=== PATIENT | female | born 1985 | race Caucasian/White ===

== ENCOUNTER 2017-01-25 14:42 | Emergency (ER) | payer OTHER ==
[2017-01-25 16:06] VITALS: BP 112/60
--- NOTE | 2017-01-25 16:31 | UC ---
FLU HPI - HPI Summary HPI Summary: Sudden onset of fever last night 101.3 with body aches and cough. No shortness of breath or wheezing. Has two sons at home that are positive influenza and are currently being treated with Tamiflu. She is also interested in Tamiflu. - History of Current Complaint Chief Complaint: UCGeneralIllness Stated Complaint: FLU SYMPTOMS Time Seen by Provider: 01/25/17 16:13 Hx Obtained From: Patient Hx Last Menstrual Period: 01/14/17 Onset/Duration: Sudden Onset Severity Currently: Moderate Severity Initially: Mild Associated Signs & Symptoms: Positive: Fever, T Max - 101.3, Myalgia, Cough. Negative: Sore Throat, Nasal Congestion, Headache, Vomiting, Diarrhea Related Hx: Possible Flu/Infectious Exposure - two sons at home have flu - Allergy/Home Medications Allergies/Adverse Reactions: Allergies Allergy/AdvReac Type Severity Reaction Status Date / Time Diphenhydramine Allergy Severe Airway Verified 01/25/17 16:05 [From Benadryl] Obstruction Povidone Iodine Allergy Rash And Verified 01/25/17 16:05 [From Betadine] Itching Salicylic Acid Allergy Hives Verified 01/25/17 16:05 proactive Allergy Hives Uncoded 01/25/17 16:05 PMH/Surg Hx/FS Hx/Imm Hx Previously Healthy: Yes Endocrine History Of: Denies: Diabetes Cardiovascular History Of: Denies: Cardiac Disorders Respiratory History Of: Denies: Asthma - Surgical History Surgical History: Yes Surgery Procedure, Year, and Place: T & A 02/08. NOSE SX; 07/2015 - Social History Occupation: Employed Full-time Lives: With Family Alcohol Use: None Substance Use Type: None Smoking Status (MU): Former Smoker Type: Cigarettes Amount Used/How Often: 1/2 ppd Length of Time of Smoking/Using Tobacco: 14 yrs Have You Smoked in the Last Year: Yes Review of Systems Constitutional: Fever, Fatigue Skin: Negative Eyes: Negative ENT: Negative Respiratory: Cough - non-productive, "tight" Cardiovascular: Negative Gastrointestinal: Negative Genitourinary: Negative Motor: Negative Neurovascular: Negative Musculoskeletal: Myalgia Neurological: Negative Psychological: Negative All Other Systems Reviewed And Are Negative: Yes Physical Exam Triage Information Reviewed: Yes Appearance: Well-Appearing, No Pain Distress, Well-Nourished Vital Signs: Initial Vital Signs Temp 99.9 F 01/25/17 16:00 Pulse 87 01/25/17 16:00 Resp 16 01/25/17 16:00 BP 112/60 01/25/17 16:00 Pulse Ox 98 01/25/17 16:00 Vital Signs Reviewed: Yes Eye Exam: Normal Eyes: Positive: Conjunctiva Clear ENT Exam: Normal ENT: Positive: Normal ENT inspection, Pharynx normal, TMs normal. Negative: Nasal congestion, Nasal drainage, Tonsillar swelling, Tonsillar exudate Neck exam: Normal Neck: Positive: Supple, Nontender, No Lymphadenopathy Respiratory Exam: Normal Respiratory: Positive: Chest non-tender, Lungs clear, Normal breath sounds, No respiratory distress, No accessory muscle use, Other: - no cough on exam. Negative: Crackles, Rhonchi, Stridor Cardiovascular Exam: Normal Cardiovascular: Positive: RRR, No Murmur Musculoskeletal Exam: Normal Neurological Exam: Normal Neurological: Positive: Alert Psychological Exam: Normal Skin Exam: Normal Flu Course/Dx - Differential Dx/Diagnosis Provider Diagnoses: Influenza Discharge - Discharge Plan Condition: Stable Disposition: HOME Prescriptions: Oseltamivir Phosphate [Tamiflu] 75 mg PO BID #10 cap Patient Education Materials: Influenza (ED) Referrals: LYDIA Carreon [Primary Care Provider] - If Needed Additional Instructions: Call or return if you develop increasing fever, shortness of breath, chest pain , bloody sputum, or otherwise worsen. If you have not improved at all after several days, contact your primary care physician or return here.
== END 2017-01-25 16:34 | disposition home or self-care (01) ==
LOC: UCCORT 14:42
DX: J11.1 Influenza due to unidentified influenza virus with other respiratory manifestations (principal); Z88.8 Allergy status to other drugs, medicaments and biological substances; Z87.891 Personal history of nicotine dependence
CPT/HCPCS: 99212; G0463

== ENCOUNTER 2018-08-17 13:32 | Emergency (ER) | payer OTHER ==
[2018-08-17 14:00] VITALS: BP 109/64
--- NOTE | 2018-08-17 14:00 | UC ---
Throat Pain/Nasal Flo HPI - HPI Summary HPI Summary: 32 yo female presents with sinus pain/pressure/congestion and dry cough that started 3 days ago. She has been taking claritin OTC with no relief. Denies fever, chills, SOB - History of Current Complaint Chief Complaint: UCRespiratory Stated Complaint: SINUSES,CHEST CONGESTION Time Seen by Provider: 08/17/18 14:00 Hx Obtained From: Patient Hx Last Menstrual Period: 08/04/18 Pain Intensity: 0 - Allergies/Home Medications Allergies/Adverse Reactions: Allergies Allergy/AdvReac Type Severity Reaction Status Date / Time diphenhydramine Allergy Hives Verified 08/17/18 13:55 [From Benadryl] povidone-iodine Allergy Hives Verified 08/17/18 13:55 [From Betadine] salicylic acid Allergy Hives Verified 08/17/18 13:55 soap [From Betadine] Allergy Hives Verified 08/17/18 13:55 proactive Allergy Hives Uncoded 01/25/17 16:05 Home Medications: Home Medications LoraTADine TAB(NF) [Claritin 10 MG TAB(NF)] 10 mg PO DAILY PRN 08/17/18 [ History Confirmed 08/17/18] PMH/Surg Hx/FS Hx/Imm Hx - Additional Past Medical History Additional PMH: Seasonal allergies - Surgical History Surgical History: Yes Surgery Procedure, Year, and Place: T & A 02/08. NOSE SX; 07/2015 - Family History Known Family History: Positive: None - Social History Occupation: Employed Full-time Lives: With Family Alcohol Use: Rare Substance Use Type: None Smoking Status (MU): Former Smoker Type: Cigarettes Amount Used/How Often: 1/2 ppd Length of Time of Smoking/Using Tobacco: 14 yrs Have You Smoked in the Last Year: Yes When Did the Patient Quit Smoking/Using Tobacco: 4 years ago Review of Systems Constitutional: Negative Skin: Negative Eyes: Negative ENT: Nasal Discharge, Sinus Congestion, Sinus Pain/Tenderness Respiratory: Cough Cardiovascular: Negative Gastrointestinal: Negative Neurovascular: Negative Neurological: Negative Psychological: Negative All Other Systems Reviewed And Are Negative: Yes Physical Exam - Summary Physical Exam Summary: GENERAL: NAD. WDWN. No pain distress. SKIN: No rashes, sores, lesions, or open wounds. HEENT: Head: AT/NC Eyes: EOM intact. Conjunctiva clear without inflammation or discharge. Ears: Hearing grossly normal. TMs intact, no bulging, erythema, or edema. Nose: Nasal mucosa mildly swollen and erythematous without discharge. TTP maxillary sinus. Throat: Posterior oropharynx without exudates, erythema, or tonsillar enlargement. Uvula midline. NECK: Supple. Nontender. No lymphadenopathy. CHEST: CTAB. No r/r/w. No accessory muscle use. Breathing comfortably and in no distress. CV: RRR. Without m/r/g. Pulses intact. NEURO: Alert. PSYCH: Age appropriate behavior. Triage Information Reviewed: Yes Vital Signs: Initial Vital Signs Temp 98.7 F 08/17/18 13:56 Pulse 74 08/17/18 13:56 Resp 12 08/17/18 13:56 BP 109/64 08/17/18 13:56 Pulse Ox 99 08/17/18 13:56 Vital Signs Reviewed: Yes Throat Pain/Nasal Course/Dx - Course Course Of Treatment: Sinusitis - Differential Dx/Diagnosis Provider Diagnoses: sinusitis Discharge - Sign-Out/Discharge Documenting (check all that apply): Patient Departure All imaging exams completed and their final reports reviewed: No Studies - Discharge Plan Condition: Stable Disposition: HOME Prescriptions: Amoxicillin PO (*) [Amoxicillin 500 MG CAP*] 500 mg PO Q12H #14 cap Patient Education Materials: Sinusitis (ED) Referrals: No Primary Care Phys,NOPCP [Primary Care Provider] - Additional Instructions: If you develop a fever, shortness of breath, chest pain, new or worsening symptoms - please call your PCP or go to the ED. - Billing Disposition and Condition Condition: STABLE Disposition: Home
== END 2018-08-17 14:19 | disposition home or self-care (01) ==
LOC: UCCORT 13:32
DX: J32.9 Chronic sinusitis, unspecified (principal); Z88.8 Allergy status to other drugs, medicaments and biological substances; Z91.048 Other nonmedicinal substance allergy status; Z87.891 Personal history of nicotine dependence
CPT/HCPCS: 99212; G0463

== ENCOUNTER 2018-10-06 09:33 | Emergency (ER) | payer OTHER ==
[2018-10-06 10:25] VITALS: BP 102/74
--- NOTE | 2018-10-06 10:41 | UC ---
General HPI - HPI Summary HPI Summary: slipped and fell down 3 steps last pm. c/o pain to outside of r wrist and foot. - History of Current Complaint Chief Complaint: UCLowerExtremity Stated Complaint: RIGHT WRIST & FOOT INJURY Time Seen by Provider: 10/06/18 10:16 Hx Obtained From: Patient Hx Last Menstrual Period: 09/07/18 Onset/Duration: Sudden Onset Timing: Constant Pain Intensity: 0 Alleviating: movement - Allergy/Home Medications Allergies/Adverse Reactions: Allergies Allergy/AdvReac Type Severity Reaction Status Date / Time diphenhydramine Allergy Hives Verified 10/06/18 10:18 [From Benadryl] povidone-iodine Allergy Hives Verified 10/06/18 10:18 [From Betadine] salicylic acid Allergy Hives Verified 10/06/18 10:18 soap [From Betadine] Allergy Hives Verified 10/06/18 10:18 proactive Allergy Hives Uncoded 10/06/18 10:18 Home Medications: Home Medications Ibuprofen TAB* [Advil TAB*] 600 mg PO Q6H PRN 10/06/18 [History Confirmed ] PMH/Surg Hx/FS Hx/Imm Hx Previously Healthy: Yes - Surgical History Surgical History: Yes Surgery Procedure, Year, and Place: T & A 02/08. NOSE SX; 07/2015 - Family History Known Family History: Positive: None - Social History Occupation: Employed Full-time Alcohol Use: Rare Substance Use Type: None Smoking Status (MU): Current Every Day Smoker Type: Smokeless Tobacco Amount Used/How Often: e cigarette Length of Time of Smoking/Using Tobacco: 14 yrs Have You Smoked in the Last Year: Yes When Did the Patient Quit Smoking/Using Tobacco: 4 years ago Review of Systems Constitutional: Negative Skin: Negative Eyes: Negative ENT: Negative Respiratory: Negative Cardiovascular: Negative Gastrointestinal: Negative Genitourinary: Negative Motor: Negative Neurovascular: Negative Musculoskeletal: Negative Neurological: Negative Psychological: Negative Is Patient Immunocompromised?: No All Other Systems Reviewed And Are Negative: Yes Physical Exam Triage Information Reviewed: Yes Appearance: Well-Appearing Vital Signs: Initial Vital Signs Temp 98.3 F 10/06/18 10:20 Pulse 76 10/06/18 10:20 Resp 14 10/06/18 10:20 BP 102/74 10/06/18 10:20 Pulse Ox 100 10/06/18 10:20 Vital Signs Reviewed: Yes Eyes: Positive: Conjunctiva Clear ENT: Positive: Normal ENT inspection Neck: Positive: Supple, Nontender, No Lymphadenopathy Respiratory: Positive: Lungs clear, Normal breath sounds Cardiovascular: Positive: RRR, No Murmur Abdomen Description: Positive: Nontender, No Organomegaly, Soft Bowel Sounds: Positive: Present Musculoskeletal: Positive: Other: - RUE: no deformity, swelling or discoloration. tender over lateral wrist. snuff box non tender. rue has full s/v /m function. RLE: no deformity, swelling or discoloration. tender over lateral foot. lue has full s/v/m function. Neurological: Positive: Alert Psychological: Positive: Age Appropriate Behavior Skin Exam: Normal Diagnostics - Radiology No standard instances Radiology Interpretation Completed By: Radiologist - IMPRESSION: No fracture of the right foot is noted. IMPRESSION: NO FRACTURE OF THE WRIST IS NOTED. Course/Dx - Course Course Of Treatment: no fx or dislocation r wrist/r foot. - Differential Dx - Multi-Symptom Provider Diagnoses: contusion R lateral foot. sprain R wrist Discharge - Sign-Out/Discharge Documenting (check all that apply): Patient Departure All imaging exams completed and their final reports reviewed: Yes - Discharge Plan Condition: Stable Disposition: ADMITTED TO OTHER HOSPITAL Patient Education Materials: Foot Contusion (ED), Wrist Sprain (ED) Referrals: LYDIA Carreon [Medical Doctor] - Additional Instructions: FOLLOW UP [facility] IF NOT BETTER IN 5-7 DAYS OR SOONER IF WORSE. NEFTALY RIGHT WRIST NEEDED FOR COMFORT. - Billing Disposition and Condition Condition: STABLE Disposition: Admitted to Other Hospital
== END 2018-10-06 11:05 | disposition home or self-care (01) ==
LOC: UCCORT 09:33
DX: S63.501A Unspecified sprain of right wrist, initial encounter (principal); S90.31XA Contusion of right foot, initial encounter; F17.210 Nicotine dependence, cigarettes, uncomplicated; W01.0XXA Fall on same level from slipping, tripping and stumbling without subsequent striking against object, initial encounter; Y92.9 Unspecified place or not applicable; Z88.8 Allergy status to other drugs, medicaments and biological substances; Z91.048 Other nonmedicinal substance allergy status
CPT/HCPCS: 99212; G0463

== ENCOUNTER 2019-05-09 12:30 | Emergency (ER) | payer OTHER ==
[2019-05-09 12:56] VITALS: BP 116/83
--- NOTE | 2019-05-09 13:12 | UC ---
Throat Pain/Nasal Flo HPI - HPI Summary HPI Summary: 33 y/o female presents to the urgent care c/o sore throat and fever since Thursday05/07/2019. Pt reports fever of 104.1F Thursday night, the sore throat developed w/ clear PND and clear nasal discharge. She has been taking Ibuprofen 600mg PO and Tylenol PO to alleviate symptoms. She would like to test for Mononucleosis since a family member recently had it. Pain w/ swallowing is 6/ 10. Pt denies cough, wheezing, SOB, dizziness, neck pain, rash, abdominal pain, urinary symptoms, N/V/D, chest pain. - History of Current Complaint Chief Complaint: UCGeneralIllness Stated Complaint: SORE THROAT Time Seen by Provider: 05/09/19 13:11 Hx Obtained From: Patient Hx Last Menstrual Period: 03/2019 ?: No Onset/Duration: Gradual Onset, Lasting Days - 2 days, Still Present Severity: Moderate Pain Intensity: 6 - sore throat Pain Scale Used: 0-10 Numeric Cough: None Associated Signs & Symptoms: Positive: Nasal Discharge - clear, Fever. Negative : Dysphagia, Wheezing, Hoarseness, Sinus Discomfort - Epiglottits Risk Factors Epiglottis Risk Factors: Negative - Allergies/Home Medications Allergies/Adverse Reactions: Allergies Allergy/AdvReac Type Severity Reaction Status Date / Time diphenhydramine Allergy Hives Verified 05/09/19 12:51 [From Benadryl] povidone-iodine Allergy Hives Verified 05/09/19 12:51 [From Betadine] salicylic acid Allergy Hives Verified 05/09/19 12:51 soap [From Betadine] Allergy Hives Verified 05/09/19 12:51 proactive Allergy Hives Uncoded 05/09/19 12:51 Home Medications: Home Medications Control Pill 1 tab PO DAILY 05/09/19 [History Confirmed 05/09/19] DOXYcycline CAP(*) [DOXYcycline 100MG CAP(*)] 50 mg PO BID 05/09/19 [History Confirmed 05/09/19] PMH/Surg Hx/FS Hx/Imm Hx Previously Healthy: Yes - Pt denies PMHX - Surgical History Surgical History: Yes Surgery Procedure, Year, and Place: T & A 02/08. NOSE SX; 07/2015 - Family History Known Family History: Positive: None - Pt deneis FMHX - Social History Occupation: Employed Full-time Lives: With Family Alcohol Use: Occasionally Substance Use Type: None Smoking Status (MU): Former Smoker Type: Smokeless Tobacco Amount Used/How Often: e cigarette Length of Time of Smoking/Using Tobacco: 14 yrs Have You Smoked in the Last Year: Yes When Did the Patient Quit Smoking/Using Tobacco: 1 MONTH Review of Systems All Other Systems Reviewed And Are Negative: Yes Constitutional: Positive: Fever, Fatigue Skin: Positive: Negative Eyes: Positive: Negative ENT: Positive: Sore Throat, Ear Ache - b/L ear burning sensation, Nasal Discharge - clear, Other - PND clear Respiratory: Positive: Negative Cardiovascular: Positive: Negative Gastrointestinal: Positive: Negative Genitourinary: Positive: Negative Motor: Positive: Negative Neurovascular: Positive: Negative Musculoskeletal: Positive: Negative Neurological: Positive: Negative Psychological: Positive: Negative Is Patient Immunocompromised?: No Physical Exam - Summary Physical Exam Summary: VITAL SIGNS: Reviewed. GENERAL: Patient is a well developed and nourished female who is sitting comfortable in the examining table. Patient is not in any acute respiratory distress. HEAD AND FACE: No signs of trauma. No ecchymosis, hematomas or skull depressions. No sinus tenderness. EYES: PERRLA, EOMI x 2, No injected conjunctiva, no nystagmus. No photophobia. EARS: Hearing grossly intact. Ear canals and tympanic membranes are within normal limits. MOUTH: Positive pharynx with erythema, exudates, palatal petechiae. No B/L tonsillar enlargement . Uvula in midline. NECK: Supple, trachea is midline, Positive anterior cervical lymphadenopathy, no JVD, no carotid bruit, no c-spine tenderness, neck with full ROM. No meningeal signs, no Kernig's or brudzinskis signs. CHEST: Symmetric, no tenderness at palpation LUNGS: Clear to auscultation bilaterally. No wheezing or crackles. CVS: Regular rate and rhythm, S1 and S2 present, no murmurs or gallops appreciated. ABDOMEN: Soft, non-tender. No signs of distention. No rebound no guarding, and no masses palpated. Bowel sounds are normal. EXTREMITIES: FROM in all major joints, no edema, no cyanosis or clubbing. NEURO: Alert and oriented x 3. No acute neurological deficits. Speech is normal and follows commands. SKIN: Dry and warm Triage Information Reviewed: Yes Vital Signs: Initial Vital Signs Temp 98.5 F 05/09/19 12:52 Pulse 84 05/09/19 12:52 Resp 16 05/09/19 12:52 BP 116/83 05/09/19 12:52 Pulse Ox 98 05/09/19 12:52 Throat Pain/Nasal Course/Dx - Course Course Of Treatment: 33 y/o female presents to the urgent care c/o sore throat and fever since Thursday05/07/2019. Pt reports fever of 104.1F Thursday night, the sore throat developed w/ clear PND and clear nasal discharge. She has been taking Ibuprofen 600mg PO and Tylenol PO to alleviate symptoms. She would like to test for Mononucleosis since a family member recently had it. Pain w/ swallowing is / 10. Pt denies cough, wheezing, SOB, dizziness, neck pain, rash, abdominal pain, urinary symptoms, N/V/D, chest pain. Hx obtained. Pt is hemodynamically stable, Vital: WNL. Pt w/ pharyngitis on examination. Rapid strep: negative. Monospot and CBC order and sent to lab to r/o mononucleosis. Pt will be notified of any abnormality. Pt advised to continue w/ ibuprofen PO to alleviates symptoms of pain and swelling. Advised on hand washing to avoid spreading. Pt advised to rest, eat well and avoid strenuous exercise. If symptoms do not improve or worsen advised to return to the urgent care or f/u with her PCP for further evaluation and treatment. D/c instructions explained. Pt understood and agreed w / plan of care. - Differential Dx/Diagnosis Differential Diagnosis/HQI/PQRI: Laryngitis, Mononucleosis, Peritonsillar Abscess, Pharyngitis, Sinusitis, Tonsillitis, URI Provider Diagnosis: Acute pharyngitis Discharge - Sign-Out/Discharge Documenting (check all that apply): Patient Departure - d/C home All imaging exams completed and their final reports reviewed: No Studies - Discharge Plan Condition: Stable Disposition: HOME Patient Education Materials: Pharyngitis (ED) Referrals: Carmen Trujillo [Primary Care Provider] - 2 Days Additional Instructions: 1-Please continue taking ibuprofen PO 800mg q6-8hrs prn and alternate w/ Tylenol PO as instructed after meals to alleviate pain and swelling. Increase fluid intake, eat well, rest and avoid strenuous exercise 2- Monospot and CBc was ordered and sent to lab. You will be notified of any abnormality for further management in your symptoms. 3-If symptoms do not improve or worsen please return to the urgent care or f/u with your PCP in 3 days for further evaluation and treatment. - Billing Disposition and Condition Condition: STABLE Disposition: Home
[2019-05-09 19:08] LABS: ABS Eosinophils 0.2 10^3/ul (0-0.6); ABS Lymphocytes 1.3 10^3/ul (1.0-4.8); ABS Monocytes 0.5 10^3/ul (0-0.8); ABS Neutrophils 1.8 10^3/ul (1.5-7.7); Eosinophil % 5.6 %; Hematocrit 39 % (35-47); Hemoglobin 13.5 g/dL (12.0-16.0); Lymphocyte % 34.1 %; Mean Corpuscular HGB Conc 35 g/dL (31-36); Mean Corpuscular Hemoglobin 31 pg (27-31); Mean Corpuscular Volume 91 fL (80-97); Mean Platelet Volume 10.2 fL (7.4-10.4); Nucleated Red Blood Cells % 0.1; Platelet Count 130 10^3/uL (150-450); Red Blood Count 4.31 10^6 /uL (3.70-4.87); Red Cell Distribution Width 13 % (10-15); White Blood Count 3.9 10^3/uL (3.5-10.8)
--- NOTE | 2019-05-10 07:44 | ED ---
Progress - Progress Note Progress Note: Monospot neg, but please have patient follow up with the primary doctor in the following week for platelet count recheck. It was low at 130K Course/Dx - Diagnoses Provider Diagnoses: Acute pharyngitis Discharge - Sign-Out/Discharge Documenting (check all that apply): Patient Departure All imaging exams completed and their final reports reviewed: No Studies - Discharge Plan Condition: Stable Disposition: HOME Patient Education Materials: Pharyngitis (ED) Referrals: Carmen Trujillo [Primary Care Provider] - 2 Days Additional Instructions: 1-Please continue taking ibuprofen PO 800mg q6-8hrs prn and alternate w/ Tylenol PO as instructed after meals to alleviate pain and swelling. Increase fluid intake, eat well, rest and avoid strenuous exercise 2- Monospot and CBc was ordered and sent to lab. You will be notified of any abnormality for further management in your symptoms. 3-If symptoms do not improve or worsen please return to the urgent care or f/u with your PCP in 3 days for further evaluation and treatment. - Billing Disposition and Condition Condition: STABLE Disposition: Home
[2019-05-11 14:10] LABS: EBV Capsid Ag IgG Ab Positive (Negative); EBV Capsid Ag IgM Ab Negative (Negative); Epstein-Barr Nuclear Antigen Positive (Negative)
== END 2019-05-09 13:50 | disposition home or self-care (01) ==
LOC: UCCORT 12:30
DX: J02.9 Acute pharyngitis, unspecified (principal); Z20.828 Contact with and (suspected) exposure to other viral communicable diseases; Z87.891 Personal history of nicotine dependence
CPT/HCPCS: 36415; 85025; 86308; 86664; 86665; 87651; 99211; G0463